=== PATIENT | male | born 1955 | race African-American/Black ===

== ENCOUNTER 2025-05-10 15:21 | Emergency (ER) | payer OTHER ==
[~2025-05-10] VITALS: Ht 175.3 cm; Wt 75.0 kg
[2025-05-10 15:26] VITALS: O2SAT 100
[2025-05-10 18:27] LABS: BASOPHILS % 0.3 % (0.0-2.0); EOSINOPHILS % 0.2 % (0.0-5.0); HEMATOCRIT. 25.0 % (42.0-52.0); HEMOGLOBIN. 8.3 g/dL (14.0-18.0); LYMPHOCYTES % 15.9 % (20.0-50.0); MEAN PLATELET VOLUME 6.8 fl (7.4-10.4); MONOCYTES % 4.4 % (2.0-8.0); NEUTROPHILS % 79.2 % (40.0-76.0); PLATELET 117 x1000/uL (130-400); RED BLOOD CELL COUNT 2.56 mill/uL (4.7-6.1); RED CELL DISTRIBUTION WIDTH 14.7 % (11.6-14.6)
[2025-05-10 18:51] LABS: CREATININE 0.8 mg/dL (0.6-1.3); UREA NITROGEN BLOOD 5 mg/dL (9-23)
[2025-05-10 18:52] LABS: PROTEIN TOTAL 5.2 g/dL (6.0-8.3)
[2025-05-10 18:53] LABS: ASPARTATE AMINOTRANSFERASE 142 IU/L (<34); BILIRUBIN DIRECT 0.2 mg/dL (<=3.0); BILIRUBIN TOTAL 0.5 mg/dL (0.1-1.0)
[2025-05-10 20:00] LABS: TROPONIN I HIGH SENSITIVITY 8 ng/L (3.0-53)
[2025-05-10 21:20] LABS: CLARITY URINE CLEAR (CLEAR); COLOR URINE YELLOW (YELLOW); GLUCOSE URINE NEGATIVE (NEGATIVE); KETONES URINE NEGATIVE (NEGATIVE); LEUKOCYTE ESTERASE URINE NEGATIVE (NEGATIVE); NITRITE URINE NEGATIVE (NEGATIVE); OCCULT BLOOD URINE NEGATIVE (NEGATIVE); PH URINE 5.5 (4.5-8.0); PROTEIN URINE NEGATIVE (NEGATIVE); SPECIFIC GRAVITY URINE 1.012 (1.005-1.030); UROBILINOGEN URINE 0.2 E.U./dL (0.2-1.0)
[2025-05-10 21:29] VITALS: BP 129/77; PULSE 77; RESP 16; TEMP 36.8; O2SAT 100
[2025-05-10 22:35] LABS: TROPONIN I HIGH SENSITIVITY 8 ng/L (3.0-53)
== END 2025-05-10 21:58 | disposition short-term general hospital (02) ==
LOC: ER 15:21 → CMPBEDREQ 05-11 08:03
DX: R29.6 Repeated falls (principal); M25.511 Pain in right shoulder; E11.9 Type 2 diabetes mellitus without complications; I10 Essential (primary) hypertension
CPT/HCPCS: 36415; 70486; 73030; 80048; 80076; 80320; 81003; 84484; 85025; 93005; 99285; G0480